=== PATIENT | female | born 1985 | race Caucasian/White ===

== ENCOUNTER 2017-01-14 15:00 | Inpatient (IN) | payer OTHER ==
[~2017-01-14] VITALS: Ht 167.6 cm; Wt 52.2 kg
--- NOTE | ~2017-01-14 | DS ---
Unit #: [id number] #: [id number] Patient: MARI SRIVASTAVA [id number] [facility] [address] [place] [address] [id number] I MR#: [id number] NAME: MARI SRIVASTAVA ROOM: [facility] Age: 31 Sex: F Admission Date: 01/14/2017 : 1985 Discharge Date: 01/17/2017 Attending Physician: Chavez Chadwick M.D. Primary Care Physician: Generic Doctor Not In System DISCHARGE SUMMARY REASON FOR ADMISSION The patient is a 31-year-old white female admitted to the [address] [place] [address] for opioid detox. HOSPITAL COURSE The patient was admitted to the [facility] and placed on routine detoxification protocol for opioids. She was continued on home medications including Wellbutrin which was increased to 300 mg daily dosing and Seroquel was continued. Gabapentin was discontinued. The patient's stay in the hospital was a fairly uneventful one. Her detox went smoothly. She requested discharge on 01/17/2017, and it was so ordered. FINAL DIAGNOSES 1. Opioid use disorder. 2. Bipolar disorder unspecified. DISPOSITION ON DISCHARGE The patient was discharged on the following medications: 1. Wellbutrin XL 300 mg daily for depression. 2. Seroquel 50 mg at h.s. for mood stabilization. DIET AND ACTIVITY No dietary or physical restrictions were placed on the patient at the time of discharge. FOLLOWUP Followup will take place through the auspices of (1) __, the patient's previous treating psychiatrist. PROGNOSIS Considered fair. Dictated by... Chavez Chadwick M.D. CB/vesta TD: 01/20/2017 09:36 JOB #: [id number] Unit #: [id number] #: [id number] Patient: MARI SRIVASTAVA DISCHARGE SUMMARY Page 1 of 1 X Chavez Chadwick MD X DISCHARGE SUMMARY
--- NOTE | ~2017-01-14 | PN ---
Unit #: [id number] #: [id number] Patient: MARI SRIVASTAVA [id number] [facility] [address] [place] [address] [id number] I MR#: [id number] NAME: MARI SRIVASTAVA ROOM: [facility] Age: 31 Sex: F Admission Date: 01/14/2017 : 1985 Attending Physician: Chavez Chadwick M.D. Admitting Physician: Chavez Chadwick M.D. Primary Care Physician: Generic Doctor Not In System [facility] PROGRESS NOTES DATE 01/16/2017 DISCUSSION The patient continues to exhibit significant symptoms of opioid withdrawal and appears to be in significant physical discomfort today. I have encouraged her to increase her participation within the therapeutic milieu once she feels physically able to do. Dictated by... Chavez Chadwick M.D. CB/katlyn TD: 01/16/2017 23:27 JOB #: [id number] [facility] PROGRESS NOTES Page 1 of 1 X Chavez Chadwick MD PROGRESS NOTE
--- NOTE | ~2017-01-14 | HP ---
Unit #: [id number] #: [id number] Patient: MARI SRIVASTAVA [id number] [place] [address] [id number] MR#: [id number] NAME: MARI SRIVASTAVA ROOM: 86 Age: 31 Sex: F Admission Date: 01/14/2017 : 1985 Attending Physician: Chavez Chadwick M.D. Admitting Physician: Chavez Chadwick M.D. Primary Care Physician: Generic Doctor Not In System HISTORY AND PHYSICAL HISTORY OF PRESENT ILLNESS Patient is a 31-year-old female admitted to [facility] on 01/14/2017 for polysubstance abuse. PAST MEDICAL HISTORY 1. Polysubstance use. 2. Depression and anxiety. 3. Insomnia. 4. Hepatitis C in remission. PAST SURGICAL HISTORY 1. LEEP procedure. 2. Oral surgery. SOCIAL HISTORY She is unemployed. She lives with her mother and brother. She smokes four cigarettes per day and uses cocaine, heroin, methamphetamine, Xanax and Suboxone. FAMILY MEDICAL HISTORY Noncontributory. ALLERGIES No known drug allergies. CURRENT MEDICATIONS Seroquel, Wellbutrin and gabapentin. REVIEW OF SYSTEMS CONSTITUTIONAL: No fever or chills. HEENT: Denies any sore throat, ear pain or runny nose. CARDIOVASCULAR: Denies chest pain, irregular heart rhythm or palpitations. CHEST: Denies shortness of breath or cough. No hemoptysis. GASTROINTESTINAL: Denies nausea, vomiting, diarrhea or chronic constipation. ENDOCRINE: Denies history of increased thirst or urination. No recent significant weight loss or gain. GENITOURINARY: Denies dysuria, frequency, or hematuria. SKIN: Denies any rashes. HEMATOLOGIC: Denies history of increased bleeding or bruising. MUSCULOSKELETAL: Denies any hot, swollen joints. No generalized muscle pain. NEUROLOGIC: Denies problems with vision or speech. No frequent, severe Unit #: [id number] #: [id number] Patient: MARI SRIVASTAVA headaches. No numbness, tingling or weakness in any extremities. Denies loss of bladder or bowel control. PHYSICAL EXAM GENERAL: She is awake, alert and oriented in no acute distress. VITAL SIGNS: Temperature 98.3, heart rate 116, respiration 20, blood pressure 123/87. HEIGHT: 5'6". WEIGHT: 115 pounds. SKIN: Warm and dry without rash or lesion. HEENT: Normocephalic. TMs not viewed. Oral and nasal passages clear. Conjunctivae clear. PERRLA. EOMs intact. NECK: Supple without lymphadenopathy or thyromegaly. HEART: Regular rate and rhythm without murmur. LUNGS: Clear. ABDOMEN: Soft, nontender. : Not done. EXTREMITIES: No evidence of cyanosis, clubbing or edema. Moves all without focal deficit. NEUROLOGICAL: Grossly within normal limits. Cranial Nerves: II: Visual baird are intact. III, IV AND : Extraocular movements are intact. Pupils are equal, round and reactive to light. V: Facial sensation is grossly normal. VII: Facial movements and expression are normal. VIII: Auditory acuity grossly intact. IX, X: Uvula is midline. Phonation is normal. XI: Patient shrugs shoulders and turns head normally. XII: Tongue protrudes in the midline. Sensory and Motor Function: Sensory and motor sensation is grossly normal. Motor: moves all extremities well. IMPRESSION 1. Psychiatric admission. 2. Drug abuse. 3. Depression and anxiety. 4. Insomnia. 5. Hepatitis C in remission. RECOMMENDATIONS Psychiatric per psychiatrist. MEDICAL: No contraindication to participate in facility activities. MEDICAL PROGNOSIS Good. MEDICAL CONDITION Stable. Dictated by... Darlene Farfan/katlyn Unit #: [id number] #: [id number] Patient: MARI SRIVASTAVA TD: 01/16/2017 00:01 JOB #: [id number] HISTORY AND PHYSICAL Page 1 of 1 X MERLE MEDELLIN APRN HISTORY AND PHYSICAL
--- NOTE | ~2017-01-14 | A ---
[facility] Nutrition Therapy DATE: 01/16/17 Patient: MARI SRIVASTAVA Physician: RHEA Address: [address] [facility] Room/Bed: [address], Zip: [place] [address] Admit Date: 01/14/17 Date of : [birth year] Height: 5 6 Weight: [phone] NUTRITIONAL ASSESSMENT: REASON: LOW BMI (18.6), UNINTENTIONAL WEIGHT LOSS PATIENT ADMITTED FOR POLYSUBSTANCE ABUSE PMH: DEPRESSION, ANXIETY, INSOMNIA, HEP C Anthropometrics: HT: 66", WT: 115#, BMI: 18.6 Labs: 01/15/17- ALL NUTRITIONAL LABS WNL Meds: WELLBUTRIN, NEURONTIN, SEROQUEL, MVI, DETOX PROTOCOL Assessment: PATIENT IS A 31 Y/O FEMALE ADMITTED FOR POLYSUBSTANCE ABUSE. PATIENT IS CURRENTLY UNEMPLOYED, LIVES WITH HER MOTHER AND BROTHER, SMOKES <1/2 PPD, HAS DAILY HEROIN AND METH USE, AND OCCASIONAL XANAX USE. IT IS NOTED THAT PATIENT HAS A HX OF INPATIENT CHEMICAL DEPENDENCY TREATMENT. SHE WAS SOBER FROM MAY - DECEMBER AND RELAPSED. UPON ADMIT PATIENT STATED A POOR APPETITE WITH A 15# WEIGHT LOSS X MONTHS. NURSING REPORTS FAIR-GOOD PO INTAKES. THERE [facility] PATIENT IS ACTIVELY DETOXING. CURRENT PSYCH MEDS MAY CAUSE WEIGHT AND APPETITE FLUCTUATIONS. SHE IS ON A REGULAR VEGETARIAN DIET WITH NO CAFFEINE. THERE ARE NO SKIN ISSUES NOTED ATT. THIS RD SUSPECTS PATIENT'S WEIGHT AND APPETITE WILL STABILIZE AND POSSIBLY INCREASE FOLLOWING DETOX. Dx: INADEQUATE NUTRIENT INTAKE R/T CURRENT CONDITION, DRUG USE AEB SELF-REPORTED WEIGHT LOSS AND DECREASED APPETITE, LOW BMI, NUTRITIONAL RISK POINT Intervention: REGULAR VEGETARIAN DIET WITH NO CAFFEINE, LARGE PORTIONS, MEDS PER MD, DETOX, PSYCH Monitoring, Evaluation and Goals: 1. ADEQUATE PO INTAKES >50% OF MEALS 2. PREVENT, CORRECT MICRO/MACRO NUTRIENT DEFICIENCIES 3. WEIGHT; PROMOTE A STEADY WEIGHT GAIN TOWARDS A HEALTHY BMI OF 19-25. PREVENT FURTHER WEIGHT LOSS MONITOR: WEIGHTS, LABS, PO/FLUID INTAKES Recommendations: 1. CONTINUE VEGETARIAN DIET WITH NO CAFFEINE TOLERATED. OFFER SNACKS BETWEEN MEALS. WILL INCREASE FRUIT AND VEGETABLE PORTIONS TO ENCOURAGE INCREASED KCAL INTAKE [facility] Nutrition Therapy DATE: 01/16/17 Patient: MARI SRIVASTAVA Physician: RHEA Address: [address] [facility] Room/Bed: [address], Zip: [place] [address] Admit Date: 01/14/17 Date of : [birth year] Height: 5 6 Weight: [phone] 2. ENCOURAGE ADEQUATE KCAL AND PROTEIN INTAKES 3. OBTAIN WEIGHTS ROUTINELY (EVERY 3-4 DAYS) 4. IF PO INTAKES ARE BELOW 50% OF MEALS PLEASE ORDER ENSURE BID TO PROMOTE ADEQUATE KCAL AND PROTEIN INTAKES RD TO F/U PER PROTOCOL AND PRN R/T PATIENT MILDLY COMPROMISED Respectfully, LAURYN GONSALVES, RD, LD [employer] [facility] cc: client file
--- NOTE | ~2017-01-14 | PA ---
Unit #: [id number] #: [id number] Patient: MARI SRIVASTAVA [id number] [facility] [address] [place] [address] [id number] MR#: [id number] NAME: MARI SRIVASTAVA ROOM: 86 Age: 31 Sex: F Admission Date: 01/14/2017 : 1985 Date of Assessment: 01/15/2017 Attending Physician: Chavez Chadwick M.D. Admitting Physician: Chavez Chadwick M.D. Primary Care Physician: Generic Doctor Not In System PSYCHIATRIC ASSESSMENT IDENITFYING INFORMATION The patient is a 31-year-old white female admitted to the [address] [place] [address] for the history of polysubstance dependence. INFORMANT(S) The patient and the chart. RELIABILITY Fair. CHIEF COMPLAINT None given. HISTORY OF PRESENT ILLNESS The patient is a 31-year-old single white female admitted to the [address] [place] [address] with a history of polysubstance dependence. The patient reports that she has been using multiple substances including occasional alcohol, cannabis, cocaine and opiates, Xanax and Suboxone. The patient also reports abuse of methamphetamine. The patient has a history of multiple previous inpatient and residential chemical dependence treatment courses but does maintain sobriety for any significant period of time. She has been followed by Dr. Ponce Nice since the age of 19 and states that she is prescribed Wellbutrin, gabapentin and Seroquel. The patient currently denies any suicidal or homicidal ideation. She complains of significant symptoms of opioid withdrawal during today's interview. Her pulse on admission was on 104. The patient does have a history of previous suicidal thinking and hopelessness. She lives with her mother. She reports that she has a history of several previous psychiatric hospitalizations at [facility] related to chemical dependence issues and has also been in residential chemical dependence treatment on at least three previous occasions. When seen today the patient continues to complain of significant symptoms of depressed mood and hopelessness. She is currently reporting no suicidal ideation and does express future orientation. PAST PSYCHIATRIC HISTORY As above. PAST MEDICAL HISTORY Noncontributory. MEDICATIONS Seroquel, Wellbutrin, Gabapentin. Unit #: [id number] #: [id number] Patient: MARI SRIVASTAVA ALLERGIES None. FAMILY HISTORY Noncontributory. SOCIAL HISTORY The patient lives with her mother. She is not presently employed. She reports substance use as noted previously and is a smoker. MENTAL STATUS EXAMINATION At this time reveals the patient to be a well-developed, well-nourished white female, appearing her stated age. She is in significant physical distress related to opioid withdrawal during interview. She is awake, alert, and oriented in all spheres. Her mood is mildly dysphoric. Her affect constricted. Speech is generally relevant and coherent. There are no gross deficits in memory or cognition noted. Intelligence is judged to be in the average range based on fund of knowledge. The patient is cooperative throughout the interview. She is currently reporting denying suicidal or homicidal ideation or psychotic features. Judgment and insight appear to be intact. ASSETS AND LIABILITIES ASSETS: Motivation for change. LIABILITIES: Lack of resources. DIAGNOSTIC IMPRESSION 1. Opioid use disorder. 2. Methamphetamine use disorder. 3. Cocaine use disorder. 4. Dysthymic disorder. PSYCHIATRIC PLAN/TREATMENT GOALS The patient remains hospitalized for safety and stabilization. We will restart previously prescribed medications and continue with the exception of Neurontin and I placed the patient on a routine detoxification protocol for opioids. The patient will participate in appropriate huerta and milieu activities with an estimate length of stay in the hospital three to five days. Followup to take place under Dr. Nice supervision. Dictated by... Chavez Chadwick M.D. EFREN/katlyn TD: 01/15/2017 22:31 JOB #: [id number] Unit #: [id number] #: [id number] Patient: MARI SRIVASTAVA PSYCHIATRIC ASSESSMENT Page 1 of 1 X Chavez Chadwick MD X PSYCHIATRIC ASSESSMENT
[2017-01-15 14:16] LABS: BASOPHIL% 0.9 % (0-2.5); EOSINOPHIL# 0.1 X10e3 (0-0.7); EOSINOPHIL% 1.7 % (0.0-7.0); HEMATOCRIT 38.6 % (35.0-45.0); HEMOGLOBIN 13.4 gm/dL (12.0-16.0); LYMPHOCYTE# 1.2 X10e3 (1.0-3.5); LYMPHOCYTE% 25.8 % (17.0-45.0); MEAN CELL VOLUME 92.2 FL (83-96); MEAN CORPUSCULAR HEMOGLOBIN 31.9 PG (28-34); MEAN CORPUSCULAR HGB CONC 34.6 g/dL (30-36); MONOCYTE# 0.4 X10e3 (0-1.0); MONOCYTE% 9.4 % (3.0-12.0); NEUTROPHIL% 62.2 % (40-75); PLATELET COUNT 233 X10e3 (140-420); RED BLOOD COUNT 4.19 X10e (3.90-5.30); WHITE BLOOD COUNT 4.7 X10e3 (4.0-10.5)
[2017-01-15 14:25] LABS: DIFF IND NO
[2017-01-15 15:47] LABS: ALBUMIN SERUM 3.8 g/dL (3.5-5.0); BILIRUBIN,TOTAL 1.1 mg/dL (0.2-2.0); BUN/CREATININE RATIO 14.28; CREATININE SERUM 0.7 mg/dL (0.6-1.4); GLOM FILT RATE Estimated 114.6 mL/min (>60); POTASSIUM 4.8 mmol/L (3.5-5.1); PROTEIN TOTAL SERUM 6.3 g/dL (6.0-8.3)
== END 2017-01-17 16:25 | disposition home or self-care (01) | DRG 897 ==
LOC: P1E 19:33
PROVIDERS: Specialist
PROC: HZ2ZZZZ Detoxification Services for Substance Abuse Treatment (ICD-10-PCS; principal; 2017-01-15)
DX: F11.23 Opioid dependence with withdrawal (principal); F14.20 Cocaine dependence, uncomplicated; F15.20 Other stimulant dependence, uncomplicated; F34.1 Dysthymic disorder
CPT/HCPCS: 80053; 84703; 85025; 86592

== ENCOUNTER 2017-01-17 23:51 | Emergency (ER) | payer OTHER | END 2017-01-18 00:06 | disposition EXP | LOC: CED 23:51 | DX: I46.9 Cardiac arrest, cause unspecified (principal) | CPT/HCPCS: 92950; 99285; J0171 ==